=== PATIENT | female | born 1965 | race Asian ===

== ENCOUNTER 2018-09-06 10:40 | Emergency (ER) | payer BC, OTHER ==
--- NOTE | 2018-09-06 12:16 | RAD ---
LEFT KNEE 4 VIEWS: Date: 09/06/18 HISTORY: Left knee pain following an injury from a fall. FINDINGS/IMPRESSION: No fracture, dislocation, or other significant acute osseous abnormality. POS: C
== END 2018-09-06 11:50 | disposition home or self-care (01) ==
LOC: SCSER 10:40
DX: S83.92XA Sprain of unspecified site of left knee, initial encounter (principal); W19.XXXA Unspecified fall, initial encounter

== ENCOUNTER 2018-09-13 08:10 | Outpatient (CLI) | payer OTHER ==
--- NOTE | 2018-09-13 10:28 | MRI ---
MRI OF LEFT KNEE PERFORMED WITHOUT CONTRAST ENHANCEMENT: Date: 09/13/18 HISTORY; Left knee pain. Patient fell down stairs a few weeks ago. FINDINGS: There is increased signal change associated with the ACL, but the fibers do appear intact. Some heter ogeneity near the femoral attachment. Posterior cruciate ligament does appear intact. The lateral meniscus maintains a normal shape and appearance. The medial meniscus shows some internal meniscal signal change, not definitely extending to an articu lar surface. This would suggest an internal mucoid degeneration. There are some edema changes associa beatrice with the meniscocapsular junction posteriorly, and this extends along the body region of the meni scus. Meniscotibial ligament is intact. There is edema change surrounding the meniscofemoral ligament , which may be partially torn. The medial and lateral collateral ligaments and iliotibial band regions are unremarkable. The patellar articular cartilage shows some prominent marrow edema changes deep to the lateral facet, and an area of increased signal change involving the lateral facet articular cartilage. This is an a pproximately 6.0 mm area where the signal change is much more heterogeneous than the surrounding cart ilage. I suspect that this may represent some healing related to a full thickness cartilage defect at this level. Considerable subchondral marrow edema change is seen. The lateral patellar retinaculum is intact. There are edema changes associated with the more proximal aspect of the medial patellar retinaculum and MPFL. There is considerable marrow edema change involving the more posterior side of the lateral tibia with trabecular fractures. There is also irregularity to the subchondral bony plate, and even an area whe re there appears to be a defect within the subchondral plate near the tibial spines. Changes are comp atible with a probable healing of a nondisplaced tibial plateau fracture in this region. In addition, there is an area of articular cartilage loss and subchondral marrow edema changes in the lateral fem oral condyle in a typical location related to ACL type injuries. There are also some mild marrow darrell a changes associated with a subtle trabecular fracture of the fibular head. IMPRESSION: 1. Findings that are suggestive of a lower grade ACL sprain. 2. Edema changes along the meniscocapsular junction of the posterior horn and body of the medial men iscus. There is not true fluid density, but the increased signal change would suggest some element of a meniscocapsular injury. Given the fact that this happened several weeks ago, this may indicate luz t there is healing related to a previous meniscocapsular separation. The meniscofemoral ligament appe ars irregular, but the meniscotibial ligament is intact. 3. Edema changes at the level of the proximal medial patellar retinaculum and MPFL suggesting a mid- grade injury at this level. The MCL is intact. 4. Prominent edema changes involving the posterolateral tibia. There is irregularity and even defect in the subchondral bony plate along the central aspect of the tibial plateau consistent with a nondi splaced tibial plateau fracture, in addition to some trabecular fractures within the tibia at this le heavenly. POS: [facility]
== END 2018-09-13 08:11 | disposition home or self-care (01) ==
LOC: TBSIIMAG 08:10
PROVIDERS: ATTEND Orthopaedic Surgery
DX: M23.92 Unspecified internal derangement of left knee (principal); R60.0 Localized edema

== ENCOUNTER 2020-06-17 13:25 | Outpatient (CLI) | payer OTHER ==
--- NOTE | 2020-06-17 14:14 | MMO ---
Bilateral MAMMO Bilat Screen [facility]. CLINICAL HISTORY: Patient is 54 years old and is seen for screening. The patient has no family history of breast cancer. The patient has no personal history of cancer. VIEWS: The views performed were: bilateral craniocaudal with tomosynthesis and bilateral mediolateral oblique with tomosynthesis. FILMS COMPARED: The present examination has been compared to prior imaging studies performed at [facility] on 04/14/2010, 12/10/2012, 06/30/2014 and 03/24/2016. This study has been interpreted with the assistance of computer-aided detection. MAMMOGRAM FINDINGS: The breasts are heterogeneously dense, which could obscure a lesion on mammography. There is a new focal asymmetry seen in the posterior outer region of the left breast. In the right breast, there are no suspicious masses, calcifications or areas of architectural distortion. IMPRESSION: NEW FOCAL ASYMMETRY IN THE LEFT BREAST REQUIRES ADDITIONAL EVALUATION. RECOMMEND DIAGNOSTIC MAMMOGRAM. ULTRASOUND MAY ALSO PROVE USEFUL AT RECALL. THE RESULTS OF THIS EXAM WERE SENT TO THE PATIENT. ACR BI-RADS Category 0 - Incomplete: Need additional imaging evaluation. [facility] will notify the patient of the need for additional imaging services. MAMMOGRAPHY NOTE: 1. A negative mammogram report should not delay a biopsy if a dominant of clinically suspicious mass is present. 2. Approximately 10% to 15% of breast cancers are not detected by mammography. 3. Adenosis and dense breasts may obscure an underlying neoplasm. Reported by: TIARA MELENDEZ MD Electonically Signed: [id number]
== END 2020-06-17 13:26 | disposition home or self-care (01) ==
LOC: BICMAMMO 13:25
PROVIDERS: ATTEND Physician Assistant
DX: Z12.31 Encounter for screening mammogram for malignant neoplasm of breast (principal); N64.89 Other specified disorders of breast
CPT/HCPCS: 77063; 77067

== ENCOUNTER 2024-01-01 09:12 | Outpatient (CLI) | payer BC | END 2024-01-01 09:13 | disposition home or self-care (01) | LOC: BICMAMMO 09:12 | PROVIDERS: ATTEND Family Medicine | DX: Z12.31 Encounter for screening mammogram for malignant neoplasm of breast (principal) | CPT/HCPCS: 77063; 77067 ==

== ENCOUNTER 2024-08-11 11:29 | Outpatient (CLI) | payer BC ==
[2024-08-11 12:26] LABS: #Basophils 0.09 10x3/uL (0.0-0.2); %Basophils 1.3 % (0.0-1.0); %Lymphocytes 38.6 % (21.0-51.0); %Monocytes 7.2 % (0.0-10.0); %Neutrophils 44.8 % (42.0-75.0); Hematocrit 41.2 % (36.0-47.0); Hemoglobin 13.9 g/dL (12.0-16.0); Mean Corpuscular HGB CONC 33.7 g/dL (32.0-36.0); Mean Corpuscular Hemoglobin 29.4 pg (27.0-31.0); Mean Corpuscular Volume 87.1 fL (78.0-98.0); Platelet Count 260 10x3/uL (130-400); Red Blood Cell (RBC) Count 4.73 mill/uL (4.20-5.40)
[2024-08-11 12:45] LABS: Anion Gap 13 mmol/L (10-20); BUN (Urea Nitrogen) 16 mg/dL (9.8-20.1); Calc. Creatinine Clearance 0 mL/min (70-130); Calcium 9.7 mg/dL (7.8-10.44); Carbon Dioxide 25 mmol/L (22-29); Chloride 108 mmol/L (98-107); Estimated GFR 100; Glucose 93 mg/dL (70-105); Potassium 4.3 mmol/L (3.5-5.1); Sodium 142 mmol/L (136-145)
== END 2024-08-11 11:30 | disposition home or self-care (01) ==
LOC: LABBT 11:29
PROVIDERS: ATTEND Orthopaedic Surgery
DX: M23.92 Unspecified internal derangement of left knee (principal)
CPT/HCPCS: 80048; 85025; 93005; 93010